=== PATIENT | female | born 1980 | race African-American/Black ===

== ENCOUNTER 2020-01-20 15:27 | Emergency (ER) | payer OTHER, SELFPAY ==
--- NOTE | 2020-01-20 | XR_ITS ---
EXAMINATION: XR FINGER, LEFT CLINICAL INFORMATION: Middle finger injury COMPARISON: None TECHNIQUE: 3 views of the left third digit. FINDINGS: On the lateral view only, there is a question of a transverse fracture through the tip of the distal phalanx. There is no suggestion of this on any other views. It is recommended to correlate with physical exam at this location (please see galaviz image). The bones and soft tissues are otherwise normal. No other fracture. Alignment is anatomic. Joint spaces are maintained. XR/XR finger LT min 2V IMPRESSION: Question fracture of the tip of the distal phalanx. Please see discussion above.
[2020-01-20 15:30] VITALS: BP 130/83; PULSE 97; RESP 17; TEMP 37.8; O2SAT 98; BMI 31.7
--- NOTE | 2020-01-20 16:16 | ED_ITS ---
HPI - Extremity Problem General Chief complaint: Extremity Problem Stated complaint: finger injury Time Seen by Provider: 01/20/20 16:12 Source: patient Mode of arrival: ambulatory Limitations: no limitations History of Present Illness HPI Narrative: Left 3rd finger crushed by bed frame yesterday. Now has pain radiating up hand and FA. NO numbness/tingling. NO fevers/chills. MD Complaint: extremity pain Onset (ago): day(s) (1 day) Pain Consistency: constant Location: left and upper extremity (3rd digit ) Quality: sharp Radiation: proximal Relieving factors: cold therapy and medication (APAP) Exacerbating factors: nothing Associated symptoms: denies other symptoms Related Data Previous Rx's Medication Instructions Recorded cyclobenzaprine 5 mg PO TID PRN #10 tab 01/20/20 hydrocodone-acetaminophen 1 tab PO Q8H PRN #5 tab 01/20/20 Allergies Allergy/AdvReac Type Severity Reaction Status Date / Time latex Allergy Shortness Verified 01/20/20 15:44 of Breath metformin Allergy Vomiting Verified 01/20/20 15:44 morphine Allergy Hives Verified 01/20/20 15:44 Review of Systems Review of Systems: Yes all other systems are reviewed and are negative Constitutional: Constitutional: Reports no additional constitutional complaints, Denies body ache(s), Denies chills, Denies fever(s), Denies headache(s) and Denies weakness Eyes: Eyes: Reports no additional eye complaints and Denies change in vision ENT: Reports system reviewed and no additional complaints, except as documented, Denies dizziness, Denies headache(s), Denies nasal congestion, Denies nasal discharge and Denies neck pain Cardiovascular: Cardiovascular: Reports no additional cardiovascular complaints, Denies chest pain, Denies leg edema and Denies dyspnea Respiratory: Respiratory: Reports no additional respiratory complaints, Denies cough and Denies dyspnea Gastrointestinal: Gastrointestinal: Reports no additional gastrointestinal complaints, Denies abdominal pain, Denies diarrhea, Denies nausea and Denies vomiting Genitourinary: Genitourinary: Reports no additional female genitourinary complaints and Denies urinary incontinence Musculoskeletal: Musculoskeletal: Reports no additional musculoskeletal complaints, Denies back pain, Denies arthralgias, Denies joint swelling, Denies neck pain, Denies numbness and Denies tingling Integumentary/Breasts: Skin/Breast: Reports system reviewed and no additional complaints, except as docu and Denies rash Neurologic: Reports system reviewed and no additional complaints, except as documented, Denies Abnormal speech present, Denies dizziness, Denies headache(s), Denies numbness, Denies tingling and Denies weakness PMFSH Past Medical History Attestation statement: The following information was validated with the patient. Source: old records reviewed and nursing notes reviewed Social History Social History Smoked in Last 30 Days: No Use of substances other than those prescribed or required for medical reasons: No Advance Directives: No Advance Directives Information Provided: No Physical Exam Vital Signs: Vital Signs: Vital Signs Temp Pulse Resp BP Pulse Ox 01/20/20 15:30 100.1 F 97 17 130/83 98 Body Mass Index 31.7 Const: General: cooperative, healthy appearing, comfortable and no acute dist ress Orientation/consciousness: patient oriented x3 Limitations: no limitations HENMT: Head: Yes normal to inspection Ears: hearing grossly normal bilaterally General nose exam: Normal external nose present Face and sinus: Yes normal facial exam Mouth: Normal oral and palatal mucosa present Throat: Yes posterior oropharynx normal Eyes: General: appearance normal, both eyes and all related structures Pupils: Equal, round and reactive pupils present Neck: Neck: Yes normal visual inspection Chest: Chest palpation & inspection: normal inspection of the chest Resp: Effort & Inspection: normal respiratory effort Auscultation: clear to auscultation bilaterally Cardio: Rate: regular rate Rhythm: regular rhythm Peripheral pulses: Peripheral pulses 2+ throughout GI: Inspection: Yes normal to inspection Palpation (GI): Soft to palpation and nontender Auscultation: normal bowel sounds Back/Spine/Pelvis: Thoracic/Lumbar Spine: thoracic and lumbar spine normal to inspection Skin: General skin exam: no rashes or lesions noted Neuro: General: patient oriented x3, no focal motor deficits and normal sensation to monofilament Cranial nerves: Yes Equal, round and reactive pupils present Cognition (Neuro): normal cognition Speech: No Abnormal speech present Gait exam (Neuro): Normal gait present Motor exam (neuro): 5/5 motor strength present throughout Extrem: Other: over the volar aspect of the distal left 3rd digit there is some ecchymosis and swelling. No obvious abrasion or laceration. Able to flex and extend digit. NV intact distally. No pain with extension or hyperextension of the wrist. Course Course Course Narrative: X-ray shows a distal phalanx fracture. Patient was placed in finger splint, medicated for analgesia. Reviewed worrisome signs symptoms of when to return to the emergency department. Comfortable discharge home. MDM - Extremity (Nontraumatic) Imaging Data hand xray: Attestation: I personally reviewed and interpreted this imaging study as follows: Radiologist's impression: EXAMINATION: XR FINGER, LEFT CLINICAL INFORMATION: Middle finger injury COMPARISON: None TECHNIQUE: 3 views of the left third digit. FINDINGS: On the lateral view only, there is a question of a transverse fracture through the tip of the distal phalanx. There is no suggestion of this on any other views. It is recommended to correlate with physical exam at this location (please see galaviz image). The bones and soft tissues are otherwise normal. No other fracture. Alignment is anatomic. Joint spaces are maintained. XR/XR finger LT min 2V IMPRESSION: Question fracture of the tip of the distal phalanx. Please see discussion above. Discharge Plan Discharge Clinical Impression: Finger fracture, left Qualifiers: Encounter type: initial encounter Finger: middle finger Fracture type: closed Phalanx: distal Fracture alignment: nondisplaced Qualified Code(s): S62.663A - Nondisplaced fracture of distal phalanx of left middle finger, initial encounter for closed fracture Patient Disposition: Home, Self-Care Instructions: Finger Fracture (ED) Additional Instructions: Keep covered with splint for comfort Apply ice Limit use of the affected digit Prescriptions: New cyclobenzaprine 5 mg tablet 5 mg PO TID PRN (Reason: muscle spasm) Qty: 10 RF: 0 hydrocodone-acetaminophen 5-300 mg tablet 1 tab PO Q8H PRN (Reason: pain) Qty: 5 RF: 0 Referrals: Physician,Unknown [Primary Care Provider] - 2 days
[2020-01-20] MEDS: oxyCODONE HCl Immed Release 5 MG TABLET PO (16:33)
== END 2020-01-20 17:04 | disposition home or self-care (01) ==
PROVIDERS: Emergency Provider Emergency Medicine
DX: S62.663A Nondisplaced fracture of distal phalanx of left middle finger, initial encounter for closed fracture (principal); W23.1XXA Caught, crushed, jammed, or pinched between stationary objects, initial encounter; Y93.89 Activity, other specified; Y92.013 Bedroom of single-family (private) house as the place of occurrence of the external cause; Y99.9 Unspecified external cause status
CPT/HCPCS: 29130; 73140; 99283; 99284

== ENCOUNTER 2020-10-10 20:39 | Emergency (ER) | payer OTHER, SELFPAY ==
[2020-10-10 21:16] VITALS: BP 150/89; PULSE 92; RESP 18; TEMP 37.6; O2SAT 99; BMI 27.8
[2020-10-10] MEDS: Ketorolac Tromethamine 15 MG/ML VIAL IM (22:40)
--- NOTE | 2020-10-10 22:52 | PC.NURSE ---
mom stating that left arm is feeling better already following torodol injection.
--- NOTE | 2020-10-10 22:54 | ED.GENADULT ---
HPI - General Adult General Chief complaint: Allergic Reaction Stated complaint: COVID VACCINE REACTION Time Seen by Provider: 10/10/20 22:54 Source: patient Mode of arrival: ambulatory History of Present Illness HPI narrative: 39-year-old female presents having received COVID-19 vaccine yesterday at approximately 1:00 p.m. and now presents with left arm pain and tingling in the left hand that only started after she received the vaccine. This is not been associated with any diaphoresis, dizziness, shortness of breath or chest pain. Patient endorses that she is unable to take Tylenol as it causes her drowsiness and she has avoided taking any anti-inflammatory is since she has had gastric bypass surgery. In addition, she has not tried either cold or hot packs to alleviate the pain. Related Data Previous Rx's Medication Instructions Recorded cyclobenzaprine 5 mg PO TID PRN #10 tab 01/20/20 hydrocodone-acetaminophen 1 tab PO Q8H PRN #5 tab 01/20/20 Allergies Allergy/AdvReac Type Severity Reaction Status Date / Time latex Allergy Shortness Verified 01/20/20 15:44 of Breath metformin Allergy Vomiting Verified 01/20/20 15:44 morphine Allergy Hives Verified 01/20/20 15:44 Review of Systems Review of Systems: Pertinent positives and negatives as stated in HPI 10 point review of systems is otherwise negative. PMFSH Past Medical History Source: nursing notes reviewed Medical History Diabetes Social History Social History Advance Directives: No Advance Directives Information Provided: No Patient : No Physical Exam Vital Signs: Vital Signs: Last Vital Signs Temp 99.6 F 10/10/20 21:16 Pulse 92 10/10/20 21:16 Resp 18 10/10/20 21:16 BP 150/89 H 10/10/20 21:16 Pulse Ox 99 10/10/20 21:16 Body Mass Index 27.8 VITAL SIGNS: Reviewed. GENERAL: Well developed, well nourished, in no acute distress. HEAD: Normocephalic/atraumatic EYES: PERRLA, EOMI OROPHARYNX: no oral lesions noted, posterior pharynx clear, no facial/tongue/lip swelling. LUNGS: Normal breath sounds. No adventitious sounds or accessory muscle use. SpO2<99> CARDIOVASCULAR: Regular rate and rhythm without noted murmurs ABDOMEN: Soft, non-tender, non-distended with bowel sounds. LEFT UPPER EXTREMITY: There is a small localized reaction with some erythema at the injection site otherwise, patient has full range of motion at the shoulder/elbow/wrist, with good capillary refill and palpable radial/ulnar pulses. SKIN: Inspection of the skin reveals no rashes, NEUROLOGIC: Alert and oriented x 4. Strength and sensation to light touch were grossly intact x 4. Course Course Course Narrative: 39-year-old female with history and clinical presentation consistent with localized an expected reaction after having received COVID-19 vaccine and no concern for cardiopulmonary etiology or radicular type of pain. Discussed in depth with patient the benefits of using an anti-inflammatory such as ibuprofen and patient reassured that if she takes this medication with milk/food and uses it conservatively there should be no issues with her gastric bypass. Patient received Toradol IM here in the ER and will be re-evaluated for improvement of her symptoms. Otherwise, there is no evidence of angioedema/anaphylaxis. On re-evaluation patient has had complete resolution of her arm discomfort and was discharged home in stable condition. Discharge Plan Discharge Clinical Impression: Adverse reaction to drug Patient Disposition: Home, Self-Care Instructions: Adverse Drug Reaction (ED) Additional Instructions: 1. Resume all home medications as prescribed. 2. Ibuprofen 400 mg, orally with milk or food, every 6 hours as needed for injection site pain. 3. Recommend warm compresses to the site for additional symptom relief. Return to the ER for acute worsening of symptoms. Prescriptions: No Action cyclobenzaprine 5 mg tablet 5 mg PO TID PRN (Reason: muscle spasm) Qty: 10 RF: 0 hydrocodone-acetaminophen 5-300 mg tablet 1 tab PO Q8H PRN (Reason: pain) Qty: 5 RF: 0 Referrals: Physician,Unknown [Primary Care Provider] - 2 days Interventions: ED Discharge Assessment Last Done: 10/10/20 23:51 Discharge Date/Time: 10/10/20 23:51
== END 2020-10-10 23:51 | disposition home or self-care (01) ==
PROVIDERS: Emergency Provider Student in an Organized Health Care Education/Training Program
DX: M79.602 Pain in left arm (principal); T50.B95A Adverse effect of other viral vaccines, initial encounter; Y92.9 Unspecified place or not applicable; E11.9 Type 2 diabetes mellitus without complications; Z98.84 Bariatric surgery status
CPT/HCPCS: 96372; 99283; 99284; J1885